=== PATIENT | female | born 1960 | race Caucasian/White ===

== ENCOUNTER 2024-07-31 10:00 | Inpatient (IN) | payer OTHER ==
[2024-07-31] MEDS ORDERED: METOCLOPRAMIDE HCL INJECTION 10 MG/2 ML VIAL ONE ×2 (11:23→11:24)
[2024-07-31] MEDS ORDERED: MECLIZINE HCL 12.5 MG TABLET ONE (11:23)
[2024-07-31] MEDS ORDERED: ACETAMINOPHEN INJECTION 100 ML ONE ×2 (11:23→11:27)
[2024-07-31] MEDS: MECLIZINE HCL 12.5 MG TABLET PO ONE (11:28)
[2024-07-31] MEDS: ACETAMINOPHEN 1000 MG/100 ML BAG IVPB ONE (11:28)
[2024-07-31] MEDS: METOCLOPRAMIDE HCL INJECTION 10 MG/2 ML VIAL IVPUSH ONE (11:29)
[2024-07-31 11:36] LABS: BASO % 0.3 % (0-2.0); EOS % 0.1 % (0-4.5); HEMATOCRIT 32.7 % (32.4-45.2); HEMOGLOBIN 10.9 GM/dL (10.7-15.3); MCH 28.1 pg (25.7-33.7); MCHC 33.2 g/dl (32.0-36.0); MEAN CELL VOLUME 84.5 fl (80-96); MEAN PLT VOLUME 7.6 fl (7.5-11.1); NEUT % 80.6 % (42.8-82.8); PLATELET COUNT 261 10^3/uL (134-434); RBC 3.87 M/mm3 (3.60-5.2); RDW 15.8 % (11.6-15.6); WHITE BLOOD COUNT 8.5 K/mm3 (4.0-10.0)
[2024-07-31 11:38] LABS: INR 1.14 (0.83-1.09); PROTHROMBIN TIME (PATIENT) 13.1 SEC (9.7-13.0)
[2024-07-31 11:41] LABS: ACTIVATED PTT 30.4 SECONDS (25.2-36.5)
[2024-07-31 11:51] LABS: POTASSIUM 5.1 mmol/L (3.5-5.1)
[2024-07-31 11:54] LABS: ALBUMIN 2.6 g/dl (3.4-5.0); BLOOD UREA NITROGEN 18.5 mg/dL (7-18); CALCIUM 9.2 mg/dL (8.5-10.1); MAGNESIUM 2.2 mg/dL (1.8-2.4)
[2024-07-31 11:57] LABS: CREATININE 1.1 mg/dL (0.55-1.3)
[2024-07-31 11:59] LABS: BILIRUBIN,TOTAL 2.1 mg/dL (0.2-1); TOT PROT 6.2 g/dl (6.4-8.2)
[2024-07-31 12:02] LABS: N-TERMINAL BNP 1341.4 pg/ml (5-125)
[2024-07-31 12:56] LABS: HIV INTERPRETATION NEGATIVE (NEGATIVE)
[2024-07-31] MEDS ORDERED: FUROSEMIDE 40 MG/4 ML INJECTABLE VIAL ONE (14:03)
[2024-07-31] MEDS: PIPERACILLIN/TAZOB 4.5 GM 4.5 GM in DEXTROSE 5%-WATER 100 ML IVPB ONE (14:04)
[2024-07-31] MEDS ORDERED: PIPERACILLIN/TAZOB 4.5 GM 4.5 GM/100 ML BAG IVPB ONE (14:04)
[2024-07-31] MEDS: FUROSEMIDE 40 MG/4 ML INJECTABLE VIAL IVPUSH ONE (14:04)
[2024-07-31 15:07] LABS: CHOLESTEROL 136 mg/dL (50-200)
[2024-07-31 15:08] LABS: LDL CHOLESTEROL (ONLY SJRH) 64 mg/dL (5-100)
[2024-07-31 15:10] LABS: HDL CHOLESTEROL 64 mg/dL (40-60)
[2024-07-31] MEDS ORDERED: FUROSEMIDE 40 MG/4 ML INJECTABLE VIAL IVPUSH SCH (15:15)
[2024-07-31 17:37] LABS: EPI CELLS >36 /uL (0-25.1); HYALINE CASTS 1 /uL (0-3.1); PH,URINE 5.5 (5.0-8.0); URINE APPEARANCE CLOUDY; URINE BACTERIA 1201 /uL (0-1359); URINE BILIRUBIN NEGATIVE (NEGATIVE); URINE COLOR YELLOW; URINE GLUCOSE (UA) NEGATIVE (NEGATIVE); URINE KETONE NEGATIVE (NEGATIVE); URINE LEUK ESTERASE NEGATIVE (NEGATIVE); URINE NITRITE NEGATIVE (NEGATIVE); URINE PROTEIN 2+ (NEGATIVE); URINE RBC 64 /uL (0-23.9); URINE WBC 54 /uL (0-25.8)
[2024-07-31] MEDS ORDERED: PIPERACILLIN/TAZOB 3.375 GM 3.375 GM in DEXTROSE 5%-WATER - 50 ML IVPB SCH (18:00)
[2024-07-31] MEDS ORDERED: PIPERACILLIN/TAZOB 3.375 GM 3.375 GM/50 ML BAG IVPB ONE (18:09)
[2024-07-31] MEDS: PIPERACILLIN/TAZOB 3.375 GM 3.375 GM in DEXTROSE 5%-WATER - 50 ML IVPB SCH (18:11)
[2024-08-01 09:11] LABS: INR 1.15 (0.83-1.09); PROTHROMBIN TIME (PATIENT) 12.9 SEC (9.7-13.0)
[2024-08-01 09:19] LABS: BASO % 0.3 % (0-2.0); EOS % 0.4 % (0-4.5); HEMATOCRIT 32.8 % (32.4-45.2); HEMOGLOBIN 10.8 GM/dL (10.7-15.3); LYMPH % 13.9 % (8-40); MCH 27.9 pg (25.7-33.7); MCHC 32.8 g/dl (32.0-36.0); MEAN PLT VOLUME 7.8 fl (7.5-11.1); MONO % 8.2 % (3.8-10.2); NEUT % 77.2 % (42.8-82.8); PLATELET COUNT 265 10^3/uL (134-434); RBC 3.86 M/mm3 (3.60-5.2); RDW 16.1 % (11.6-15.6)
[2024-08-01 09:47] LABS: POTASSIUM 4.8 mmol/L (3.5-5.1)
[2024-08-01 10:04] LABS: ALBUMIN 2.4 g/dl (3.4-5.0); BLOOD UREA NITROGEN 17.1 mg/dL (7-18); CALCIUM 9.3 mg/dL (8.5-10.1)
[2024-08-01 10:07] LABS: BILIRUBIN,TOTAL 2.7 mg/dL (0.2-1); CREATININE 1.2 mg/dL (0.55-1.3)
[2024-08-01 10:08] LABS: TOT PROT 5.9 g/dl (6.4-8.2)
[2024-08-01] MEDS: LACTATED RINGERS SOLUTION 1,000 ML/1,000 ML INFUS.BAG IV SCH (18:47)
[2024-08-01] MEDS: INDOMETHACIN 50 MG RECTAL SUPPOSITORY PR ONE (18:48)
[2024-08-01] MEDS ORDERED: PIPERACILLIN/TAZOB 3.375 GM 3.375 GM in DEXTROSE 5%-WATER - 50 ML IVPB SCH (20:30)
[2024-08-01] MEDS: LABETALOL HCL 100 MG TABLET (FP) PO SCH (21:23)
[2024-08-01] MEDS: PIPERACILLIN/TAZOB 3.375 GM 50 ML IVPB SCH (21:26)
[2024-08-02 07:35] LABS: ALBUMIN 2.1 g/dl (3.4-5.0)
[2024-08-02 07:37] LABS: BILIRUBIN,DIRECT 1.3 mg/dL (0.0-0.2); CHOLESTEROL 144 mg/dL (50-200)
[2024-08-02 07:38] LABS: LDL CHOLESTEROL (ONLY SJRH) 84 mg/dL (5-100)
[2024-08-02 07:39] LABS: BILIRUBIN,TOTAL 1.8 mg/dL (0.2-1); TOT PROT 5.2 g/dl (6.4-8.2)
[2024-08-02 07:40] LABS: HDL CHOLESTEROL 38 mg/dL (40-60)
[2024-08-02] MEDS ORDERED: ENOXAPARIN NA (PORCINE) 40 MG/0.4 ML DISP.SYRIN SQ SCH (14:30)
[2024-08-02 20:05] LABS: BF WBC & OTHER NUCLEATED CELLS 180 /mm3
[2024-08-02 20:31] LABS: BODY FLUID MONOCYTE 27 %
[2024-08-02 20:32] LABS: BODY FLUID MACROPHAGES 3 %; BODY FLUID MESOTHELIAL 16 %
[2024-08-03] MEDS: CEFTRIAXONE 1 G/50 ML PREMIX 50 ML IVPB SCH (09:58)
[2024-08-03 11:06] LABS: POTASSIUM 4.8 mmol/L (3.5-5.1)
[2024-08-03 11:07] LABS: BASO % 0.6 % (0-2.0); EOS % 0.4 % (0-4.5); HEMATOCRIT 31.5 % (32.4-45.2); HEMOGLOBIN 10.6 GM/dL (10.7-15.3); LYMPH % 14.7 % (8-40); MCH 28.1 pg (25.7-33.7); MCHC 33.5 g/dl (32.0-36.0); MEAN CELL VOLUME 83.8 fl (80-96); MEAN PLT VOLUME 7.7 fl (7.5-11.1); MONO % 7.5 % (3.8-10.2); NEUT % 76.8 % (42.8-82.8); PLATELET COUNT 252 10^3/uL (134-434); RBC 3.76 M/mm3 (3.60-5.2); RDW 15.9 % (11.6-15.6); WHITE BLOOD COUNT 6.1 K/mm3 (4.0-10.0)
[2024-08-03 11:09] LABS: BLOOD UREA NITROGEN 18.2 mg/dL (7-18); CALCIUM 8.5 mg/dL (8.5-10.1)
[2024-08-03 11:10] LABS: ALBUMIN 2.1 g/dl (3.4-5.0)
[2024-08-03 11:13] LABS: CREATININE 1.1 mg/dL (0.55-1.3)
[2024-08-03 11:14] LABS: BILIRUBIN,TOTAL 1.3 mg/dL (0.2-1)
[2024-08-03 11:15] LABS: TOT PROT 5.4 g/dl (6.4-8.2)
[2024-08-03] MEDS: LABETALOL HCL 100 MG TABLET (FP) PO SCH (22:01)
[2024-08-04 07:26] LABS: HEMATOCRIT 30.1 % (32.4-45.2); HEMOGLOBIN 10.2 GM/dL (10.7-15.3); MCH 28.5 pg (25.7-33.7); MCHC 33.9 g/dl (32.0-36.0); MEAN CELL VOLUME 83.9 fl (80-96); MEAN PLT VOLUME 7.7 fl (7.5-11.1); PLATELET COUNT 271 10^3/uL (134-434); RBC 3.58 M/mm3 (3.60-5.2); RDW 15.9 % (11.6-15.6); WHITE BLOOD COUNT 5.6 K/mm3 (4.0-10.0)
[2024-08-04 07:51] LABS: POTASSIUM 4.7 mmol/L (3.5-5.1)
[2024-08-04 08:02] LABS: ALBUMIN 2.1 g/dl (3.4-5.0); BLOOD UREA NITROGEN 15.2 mg/dL (7-18); CALCIUM 8.5 mg/dL (8.5-10.1)
[2024-08-04 08:05] LABS: CREATININE 1.1 mg/dL (0.55-1.3)
[2024-08-04 08:07] LABS: TOT PROT 5.4 g/dl (6.4-8.2)
[2024-08-04] MEDS ORDERED: INDOMETHACIN 50 MG RECTAL SUPPOSITORY PR ONE (12:00)
[2024-08-04] MEDS ORDERED: ARTIFICIAL TEARS OPHTHALMIC DROPS OU PRN (20:39)
[2024-08-05 07:43] LABS: HEMATOCRIT 32.5 % (32.4-45.2); HEMOGLOBIN 10.5 GM/dL (10.7-15.3); MCH 27.8 pg (25.7-33.7); MCHC 32.2 g/dl (32.0-36.0); MEAN CELL VOLUME 86.3 fl (80-96); MEAN PLT VOLUME 7.7 fl (7.5-11.1); PLATELET COUNT 295 10^3/uL (134-434); RBC 3.76 M/mm3 (3.60-5.2); RDW 16.1 % (11.6-15.6); WHITE BLOOD COUNT 5.6 K/mm3 (4.0-10.0)
[2024-08-05 08:02] LABS: POTASSIUM 5.1 mmol/L (3.5-5.1)
[2024-08-05 08:08] LABS: ALBUMIN 2.3 g/dl (3.4-5.0); BLOOD UREA NITROGEN 14.6 mg/dL (7-18); CALCIUM 8.7 mg/dL (8.5-10.1)
[2024-08-05 08:12] LABS: CREATININE 1.1 mg/dL (0.55-1.3)
[2024-08-05 08:13] LABS: BILIRUBIN,TOTAL 0.9 mg/dL (0.2-1); TOT PROT 5.5 g/dl (6.4-8.2)
[2024-08-05] MEDS: ENOXAPARIN NA (PORCINE) 40 MG/0.4 ML DISP.SYRIN SQ SCH (10:14)
[2024-08-05 14:08] LABS: BODY FLUID ALBUMIN 1.5 g/dL (Not Estab.)
[2024-08-05] MEDS ORDERED: LABETALOL HCL 100 MG TABLET (FP) PO SCH (16:13)
[2024-08-05] MEDS: LOSARTAN POTASSIUM 50 MG TABLET PO SCH (17:11)
[2024-08-05] MEDS: LABETALOL HCL 100 MG TABLET (FP) PO SCH (21:22)
[2024-08-06 07:21] LABS: HEMATOCRIT 31.2 % (32.4-45.2); LYMPH % 17.8 % (8-40); MCH 27.4 pg (25.7-33.7); MCHC 32.2 g/dl (32.0-36.0); MEAN CELL VOLUME 85.1 fl (80-96); MEAN PLT VOLUME 7.5 fl (7.5-11.1); MONO % 5.8 % (3.8-10.2); NEUT % 74.4 % (42.8-82.8); PLATELET COUNT 295 10^3/uL (134-434); RBC 3.66 M/mm3 (3.60-5.2)
[2024-08-06 07:31] LABS: POTASSIUM 5.1 mmol/L (3.5-5.1)
[2024-08-06 07:34] LABS: ALBUMIN 2.2 g/dl (3.4-5.0); BLOOD UREA NITROGEN 13.5 mg/dL (7-18); CALCIUM 8.6 mg/dL (8.5-10.1); MAGNESIUM 1.9 mg/dL (1.8-2.4)
[2024-08-06 07:37] LABS: PHOSPHOROUS 4.1 mg/dL (2.5-4.9)
[2024-08-06 07:39] LABS: BILIRUBIN,TOTAL 0.7 mg/dL (0.2-1); TOT PROT 5.4 g/dl (6.4-8.2)
[2024-08-06 15:55] VITALS: BMI 31.3
[2024-08-06] MEDS: INSULIN ASPART SLIDING SCALE (NOVOLOG) 1 VIAL SQ SCH (18:44)
[2024-08-06] MEDS: ATORVASTATIN CA 40 MG TABLET (FP) PO SCH (21:16)
[2024-08-07] MEDS: INSULIN ASPART SLIDING SCALE (NOVOLOG) 1 VIAL SQ SCH (06:00)
[2024-08-07 08:38] LABS: POTASSIUM 4.8 mmol/L (3.5-5.1)
[2024-08-07 08:44] LABS: CALCIUM 8.8 mg/dL (8.5-10.1)
[2024-08-07 08:45] LABS: ALBUMIN 2.3 g/dl (3.4-5.0); BLOOD UREA NITROGEN 13.5 mg/dL (7-18)
[2024-08-07 08:47] LABS: CREATININE 1.1 mg/dL (0.55-1.3)
[2024-08-07 08:48] LABS: BILIRUBIN,TOTAL 0.6 mg/dL (0.2-1); TOT PROT 5.4 g/dl (6.4-8.2)
[2024-08-08 08:03] LABS: POTASSIUM 4.8 mmol/L (3.5-5.1)
[2024-08-08 08:06] LABS: ALBUMIN 2.4 g/dl (3.4-5.0); CALCIUM 8.8 mg/dL (8.5-10.1)
[2024-08-08 08:07] LABS: BLOOD UREA NITROGEN 17.5 mg/dL (7-18)
[2024-08-08 08:11] LABS: BILIRUBIN,TOTAL 0.6 mg/dL (0.2-1); TOT PROT 5.6 g/dl (6.4-8.2)
[2024-08-08 08:18] LABS: HEMOGLOBIN 10.5 GM/dL (10.7-15.3); MCH 27.7 pg (25.7-33.7); MCHC 32.8 g/dl (32.0-36.0); MEAN CELL VOLUME 84.5 fl (80-96); MEAN PLT VOLUME 7.4 fl (7.5-11.1); PLATELET COUNT 336 10^3/uL (134-434); RBC 3.79 M/mm3 (3.60-5.2); RDW 16.6 % (11.6-15.6); WHITE BLOOD COUNT 5.4 K/mm3 (4.0-10.0)
[2024-08-08 21:09] LABS: ANTIGLOMERULAR BASEMENT MEN.AB <0.2 units (0.0-0.9)
[2024-08-08] MEDS: LABETALOL HCL 200 MG TABLET (FP) PO SCH (21:25)
[2024-08-09 08:43] LABS: HEMATOCRIT 33.8 % (32.4-45.2); MCH 27.9 pg (25.7-33.7); MCHC 32.6 g/dl (32.0-36.0); MEAN CELL VOLUME 85.5 fl (80-96); MEAN PLT VOLUME 7.7 fl (7.5-11.1); PLATELET COUNT 367 10^3/uL (134-434); RBC 3.95 M/mm3 (3.60-5.2); RDW 16.3 % (11.6-15.6); WHITE BLOOD COUNT 5.8 K/mm3 (4.0-10.0)
[2024-08-09 09:10] LABS: POTASSIUM 4.7 mmol/L (3.5-5.1)
[2024-08-09 09:13] LABS: ALBUMIN 2.7 g/dl (3.4-5.0); BLOOD UREA NITROGEN 17.1 mg/dL (7-18)
[2024-08-09 09:14] LABS: CALCIUM 8.8 mg/dL (8.5-10.1)
[2024-08-09 09:16] LABS: CREATININE 1.1 mg/dL (0.55-1.3)
[2024-08-09 09:17] LABS: BILIRUBIN,TOTAL 0.6 mg/dL (0.2-1)
[2024-08-09 17:42] LABS: EPI CELLS >36 /uL (0-25.1); HYALINE CASTS 2 /uL (0-3.1); PH,URINE 5.5 (5.0-8.0); URINE APPEARANCE CLOUDY; URINE BACTERIA 0 /uL (0-1359); URINE BILIRUBIN NEGATIVE (NEGATIVE); URINE COLOR YELLOW; URINE GLUCOSE (UA) NEGATIVE (NEGATIVE); URINE KETONE NEGATIVE (NEGATIVE); URINE LEUK ESTERASE TRACE (NEGATIVE); URINE NITRITE NEGATIVE (NEGATIVE); URINE PROTEIN 2+ (NEGATIVE); URINE RBC 75 /uL (0-23.9); URINE UROBILINOGEN 0.2 mg/dL (0.2-1.0); URINE WBC 22 /uL (0-25.8)
[2024-08-10] MEDS: INDOMETHACIN 50 MG RECTAL SUPPOSITORY PR ONE ×2 (06:44→11:05)
[2024-08-10] MEDS: CEFTRIAXONE 1 G/50 ML PREMIX 50 ML IVPB SCH (09:18)
[2024-08-10 09:54] LABS: BASO % 1.2 % (0-2.0); HEMATOCRIT 32.8 % (32.4-45.2); HEMOGLOBIN 10.7 GM/dL (10.7-15.3); LYMPH % 23.1 % (8-40); MCH 27.5 pg (25.7-33.7); MCHC 32.6 g/dl (32.0-36.0); MEAN CELL VOLUME 84.4 fl (80-96); MEAN PLT VOLUME 7.4 fl (7.5-11.1); MONO % 7.1 % (3.8-10.2); NEUT % 66.6 % (42.8-82.8); PLATELET COUNT 359 10^3/uL (134-434); RBC 3.88 M/mm3 (3.60-5.2); RDW 16.6 % (11.6-15.6); WHITE BLOOD COUNT 5.4 K/mm3 (4.0-10.0)
[2024-08-10 09:57] LABS: INR 1.04 (0.83-1.09)
[2024-08-10 10:19] LABS: POTASSIUM 4.6 mmol/L (3.5-5.1)
[2024-08-10] MEDS ORDERED: SEVOFLURANE 250 ML BTL ONE (10:26)
[2024-08-10 10:29] LABS: ALBUMIN 2.6 g/dl (3.4-5.0); BLOOD UREA NITROGEN 16.7 mg/dL (7-18)
[2024-08-10 10:32] LABS: CREATININE 1.2 mg/dL (0.55-1.3)
[2024-08-10 10:34] LABS: BILIRUBIN,TOTAL 0.7 mg/dL (0.2-1); TOT PROT 5.8 g/dl (6.4-8.2)
[2024-08-10] MEDS ORDERED: MIDAZOLAM HCL 2 MG/2 ML SINGLE DOSE VIAL ONE (10:42)
[2024-08-10 14:11] LABS: C-ANCA <1:20 titer (Neg:<1:20)
[2024-08-11 11:02] LABS: EOS % 1.7 % (0-4.5); HEMATOCRIT 32.7 % (32.4-45.2); HEMOGLOBIN 10.6 GM/dL (10.7-15.3); LYMPH % 17.6 % (8-40); MCHC 32.5 g/dl (32.0-36.0); MEAN CELL VOLUME 86.3 fl (80-96); MEAN PLT VOLUME 7.6 fl (7.5-11.1); MONO % 5.6 % (3.8-10.2); NEUT % 74.1 % (42.8-82.8); PLATELET COUNT 339 10^3/uL (134-434); RBC 3.79 M/mm3 (3.60-5.2); RDW 16.4 % (11.6-15.6); WHITE BLOOD COUNT 5.6 K/mm3 (4.0-10.0)
[2024-08-11 11:25] LABS: POTASSIUM 4.9 mmol/L (3.5-5.1)
[2024-08-11 11:33] LABS: ALBUMIN 2.5 g/dl (3.4-5.0); BLOOD UREA NITROGEN 17.6 mg/dL (7-18); CALCIUM 8.9 mg/dL (8.5-10.1)
[2024-08-11 11:37] LABS: CREATININE 1.2 mg/dL (0.55-1.3)
[2024-08-11 11:38] LABS: BILIRUBIN,TOTAL 0.6 mg/dL (0.2-1); TOT PROT 5.9 g/dl (6.4-8.2)
[2024-08-11 15:01] VITALS: RESP 18
[2024-08-11] MEDS: amLODIPine BESYLATE 5 MG TABLET (FP) PO ONE (15:48)
[2024-08-11] MEDS: hydrALAZINE HCL 25 MG TABLET (FP) PO ONE (18:28)
[2024-08-11 18:48] VITALS: TEMP 97.7
[2024-08-11 18:51] VITALS: BP 171/65; PULSE 59
[2024-08-12] MEDS ORDERED: amLODIPine BESYLATE 5 MG TABLET (FP) PO SCH (10:00)
== END 2024-08-11 19:15 | disposition short-term general hospital (02) | DRG 264 ==
LOC: JER 10:00 → JERBED 13:22 → J4W 22:26 → J8W 08-09 10:03
PROVIDERS: ADMIT Internal Medicine; ATTEND Internal Medicine
PROC: 0W9930Z Drainage of Right Pleural Cavity with Drainage Device, Percutaneous Approach (ICD-10-PCS; principal; 2024-08-02)
PROC: 0WP9X0Z Removal of Drainage Device from Right Pleural Cavity, External Approach (ICD-10-PCS; 2024-08-07)
PROC: 0FJB8ZZ Inspection of Hepatobiliary Duct, Via Natural or Artificial Opening Endoscopic (ICD-10-PCS; 2024-08-10)
DX: K80.42 Calculus of bile duct with acute cholecystitis without obstruction (principal); E78.5 Hyperlipidemia, unspecified; R17 Unspecified jaundice; R42 Dizziness and giddiness; I11.0 Hypertensive heart disease with heart failure; I50.33 Acute on chronic diastolic (congestive) heart failure; R80.9 Proteinuria, unspecified; I27.20 Pulmonary hypertension, unspecified; R79.89 Other specified abnormal findings of blood chemistry; J90 Pleural effusion, not elsewhere classified; E66.9 Obesity, unspecified; Z68.32 Body mass index [BMI] 32.0-32.9, adult; Z91.148 Patient's other noncompliance with medication regimen for other reason
CPT/HCPCS: 0241U-QW; 32552; 32557; 36415; 70450-TC; 71045-TC-FY; 71046-TC-FY; 71250-TC; 74181-TC; 76700-TC; 80048; 80053; 80061; 80076; 81003; 82042; 82150; 82465; 82570; 82945; 82962; 83036; 83516; 83520; 83605; 83615; 83690; 83735; 83880; 83986; 84100; 84155; 84156; 84157; 84165; 84478; 84484; 85025; 85027; 85610; 85730; 86038; 86160; 86225; 86256; 86704; 86708; 86803; 86850; 86900; 86901; 87070; 87075; 87086; 87102; 87116; 87205; 87206; 87210; 87340; 87389; 87517; 87635; 88108; 88305-TC; 93005; 93010; 93306-TC; 97116-GP; 97162-GP; 99285-25; J0131